=== PATIENT | female | born 1935 | race Caucasian/White ===

== ENCOUNTER → 2016-06-23 | Day surgery (SDC) | payer MEDICARE ==
[~2016-06-23] VITALS: Ht 157.5 cm; Wt 55.3 kg
[~2016-06-23] MED LIST: BIOT1SUB SL; BUPIVACAINE HCL PF 0.5% 30 ML VIAL ONE; CALC600T25 PO; CIPR250T52 PO; CIPROFLOXACIN 400 MG PREMIX 200 ML ONE; ESTR0.5T PO; FAMOTIDINE 20 MG/2 ML VIAL ONE; FISH120014 PO; LACTATED RINGER'S 1000 ML INJ 1,000 ML ONE; LEVA250T PO; LEVO250T7 PO; LIDOCAINE HCL 2% 50 ML VIAL ONE; MAGN-23 PO; META0.52; MIDAZOLAM HCL 2 MG/2 ML VIAL ONE; MSM/CAP PO; MULT-207 PO; NEOMYCIN/POLYMYXIN 1 ML G.U. IRRIGANT IR ONE; NORC5TAB PO; PROPOFOL 200 MG/20 ML AMP IV ONE; RANI150T PO; VITA500C18 PO; VITACAP7 PO; [UNRECOGNIZED DRUG - CODE] PO
[2016-06-23 07:50] VITALS: BP 112/59; PULSE 57; RESP 20; TEMP 97.9; O2SAT 99
--- NOTE | 2016-06-23 11:58 | MP ---
cc: SAI MEJIA III, M.D. DATE OF SURGERY 06/23/2016 PREOPERATIVE DIAGNOSIS 1. Left middle finger trigger finger. 2. Left middle finger middle phalanx painful osteophyte PROCEDURES 1. Left third A1 stanislav release 2. Left middle finger middle phalangeal osteophyte excision 3. Use of image intensifier. SURGEON Sai Mejia III, MD PROCEDURE The patient was brought to the operative room, placed on the operating table after the correct site and there were verified members of each team room multiple times including the patient and myself and after adequate preop markings and preoperative written consent were verified by everyone and after an adequate preoperative time-out was performed and after adequate IV sedation had been achieved, the left upper extremity prepped and draped in traditional sterile surgical fashion. A 50/50 mixture of 2% plain lidocaine and 0.5% plain Marcaine was infiltrated into the skin and subcutaneous tissue overlying the site of the planned incision. The limb was exsanguinated after examination. A highly-placed well-padded axillary tourniquet was inflated to 180 mmHg for a total of approximately 20 minutes. A transversely oriented incision within the distal palmar crease made and carried down through the skin and subcutaneous tissue. Blunt dissection was performed. The flexor tendons were identified and the A1 stanislav was identified as well. It was found to be thick and redundant and it was incised in its midline in its entirety from its proximal most to its distal-most extent. Exploration proximally which did wrap into the palm did not reveal any crossing bands of tissue. Thorough irrigation with saline was performed and the skin edges reapproximated using interrupted 5-0 nylon sutures. Attention was then turned to the radial aspect of the third finger PIP joint. A longitudinally oriented incision in the mid axillary area was made and carried down through the skin and then blunt dissection was performed. The ligamentous tissue overlying the bony osteophyte at the base of the middle phalanx incised longitudinally. A Periosteal elevator was then used to elevate the tissue from the bone and inflamed osteophytic projection was easily identified and was excised in its entirety. This was then followed from initiation to completion using mini C-arm for guidance and final x-rays were obtained. A passive range of motion was performed and there were no instability in the PIP joint at all. A thorough irrigation was performed. The ligamentous tissue was then reapproximated to itself using 4-0 Mersilene sutures in a [id number] fashion. Thorough irrigation was performed. The skin edges reapproximated using running 5-0 nylon sutures. The hand and arm were thoroughly cleansed and dried. Betadine Adaptic dressings were applied on top of the wound followed by a bulky soft dressing. The axillary tourniquet was released and the hand and all the fingers on the left became immediately soft, pink, warm and had brisk capillary refill of less than two-seconds. The patient was awakened from anesthesia and transported to the Post-Anesthesia Care Unit awake and in stable condition at the end of the case. Sponge, needle, and instrument counts were correct at the end of the case as reported by nurses in the room. MD ARLEN Benitez III/OREN /11:19 AM /11:41 AM
[2016-06-23 12:00] VITALS: BP 118/55; PULSE 62; RESP 14; O2SAT 99
--- NOTE | 2016-06-24 18:49 | EKG ---
Date Performed: 06/23/2016 Time Performed: 08:17:18 PTAGE: 81 years EKG: Sinus bradycardia. Normal ECG except for rate NO PREVIOUS TRACING DOCTOR: Sami Resendez Interpretating Date/Time 06/24/2016 18:44:31
== END | disposition home or self-care (01) ==
LOC: PHSDC 06:57
PROVIDERS: ATTEND Orthopaedic Surgery Hand Surgery
DX: M65.332 Trigger finger, left middle finger (principal); M25.742 Osteophyte, left hand; Z01.810 Encounter for preprocedural cardiovascular examination
CPT/HCPCS: 01810; 26055; 26235; 76000; 93005; J0744; J2250; J7120

== ENCOUNTER → 2016-09-07 | Outpatient (CLI) | payer MEDICARE ==
[~2016-09-07] MED LIST changes: +BIOT5TAB PO; -BUPIVACAINE HCL PF 0.5% 30 ML VIAL ONE; +CARB1DRO19 EACH EYE; -CIPR250T52 PO; -CIPROFLOXACIN 400 MG PREMIX 200 ML ONE; +ESTR42.5V VAGINAL; -FAMOTIDINE 20 MG/2 ML VIAL ONE; -LACTATED RINGER'S 1000 ML INJ 1,000 ML ONE; -LEVA250T PO; -LEVO250T7 PO; -LIDOCAINE HCL 2% 50 ML VIAL ONE; -MIDAZOLAM HCL 2 MG/2 ML VIAL ONE; +MULT1TAB PO; -NEOMYCIN/POLYMYXIN 1 ML G.U. IRRIGANT IR ONE; -NORC5TAB PO; +OMEG12007 PO; -PROPOFOL 200 MG/20 ML AMP IV ONE; +TURM500C4 PO
[2016-09-07 13:24] LABS: BLOOD, URINE NEG (NEG); COMMENT (UR) CULT NOT INDICATED; CULTURE IF INDICATED CULT NOT INDICATED; GLUCOSE,URINE NEG (NEG); KETONE, URINE NEG (NEG); MUCUS URINE FEW /lpf (OCC); NITRITE,URINE NEG (NEG); PH, URINE 6.5 (5.0-8.5); SQUAMOUS EPITHELIAL CELL URINE <1 /hpf (0-5); URINE COLOR YELLOW (YELLW/STRAW)
[2016-09-07 13:31] LABS: AUTOMATED NEUTROPHIL # 5.4 TH/MM3 (1.8-7.7); BASOPHIL # 0.1 TH/MM3 (0-0.2); BASOPHIL % 1.1 % (0.0-2.0); EOSINOPHIL # 0.2 TH/MM3 (0-0.4); EOSINOPHIL % 2.6 % (0.0-4.0); HEMATOCRIT 39.1 % (35.0-46.0); HEMO FLAGS DIFF FINAL; LYMPH % 18.7 % (9.0-44.0); LYMPHOCYTE # 1.4 TH/MM3 (1.0-4.8); MEAN CELL VOLUME 91.9 FL (80.0-100.0); MEAN CORPUSCULAR HEMOGLOBIN 30.9 PG (27.0-34.0); MEAN CORPUSCULAR HGB CONC 33.6 % (32.0-36.0); MONO % 7.8 % (0.0-8.0); NEUT % 69.8 % (16.0-70.0); PLATELET COUNT 240 TH/MM3 (150-450); RED BLOOD COUNT 4.25 MIL/MM3 (4.00-5.30); RED CELL DISTRIBUTION WIDTH 13.5 % (11.6-17.2); WHITE BLOOD COUNT 7.7 TH/MM3 (4.0-11.0)
== END ==
LOC: CPRE 12:41
PROVIDERS: ATTEND Obstetrics & Gynecology
DX: Z01.812 Encounter for preprocedural laboratory examination (principal); N85.00 Endometrial hyperplasia, unspecified; N88.2 Stricture and stenosis of cervix uteri
CPT/HCPCS: 36415; 81001; 85025

== ENCOUNTER → 2016-09-09 | Day surgery (SDC) | payer MEDICARE ==
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
[~2016-09-09] VITALS: Ht 157.5 cm; Wt 53.6 kg
[~2016-09-09] MED LIST changes: +ACETAMINOPHEN 1000 MG/100 ML VIAL IV ONE; +ACETAMINOPHEN 1000 MG/100 ML VIAL IV PRN; -BIOT1SUB SL; +CHLORHEXIDINE GLUCONATE 2 % 1 PACK (2 CLOTHS) TOPICAL PRN; +DEXAMETHASONE SOD PHOS 4 MG/ML VIAL ONE; +DO NOT ADM ANY ANTICOAGULANT DRUGS PRN; -ESTR0.5T PO; -FISH120014 PO; +INSULIN HUMAN REGULAR 1,000 UNITS/10 ML VIAL SQ PRN; +LACTATED RINGER'S 1000 ML IV PRN; +METOPROLOL TARTRATE 25 MG TAB PO PRN; -MULT-207 PO; +ONDANSETRON HCL 4 MG/2 ML VIAL IV PUSH ONE; +POVIDONE IODINE 5% (ANTISEPSIS KIT) 4 APPLICATIONS EACH NARE PRN; +PROPOFOL 200 MG/20 ML AMP IV ONE; +SODIUM CHLORID 0.9% 500 ML IV PRN; -[UNRECOGNIZED DRUG - CODE] PO; +ceFAZolin 1,000 MG/NS 100 ML IV SCH
[2016-09-09 05:45] VITALS: BP 131/55; PULSE 58; RESP 20; TEMP 98.1; O2SAT 98
[2016-09-09 08:35] VITALS: BP 138/55; PULSE 58; RESP 20; TEMP 97.5; O2SAT 99
--- NOTE | 2016-09-10 08:42 | MP ---
cc: ANGELITA BAINS DATE OF SURGERY 09/09/2016 PREOPERATIVE DIAGNOSIS Atypical glandular cells on Pap smear. POSTOPERATIVE DIAGNOSIS Atypical glandular cells on Pap smear with apparent endometrial polyp. PROCEDURE Hysteroscopy D&C. ANESTHESIA General LMA ESTIMATED BLOOD LOSS Less than 5 cc FLUIDS Half liter crystalloid. OBJECTIVE FINDINGS Following induction of adequate LMA anesthesia, the patient was prepped and draped supine on the operating table in the dorsolithotomy position in the usual sterile fashion with the bladder being drained via in and out catheterization. Exam revealed a small anterior uterus. Cervix was nearly flush with the vagina. The cervix was exposed with handheld retractors. The anterior lip grasped with a single toothed tenaculum. The cervix and uterus sounded to 6.5 cm with a soft, atraumatic dilator and gently dilated to #16 Hanks dilator. The hysteroscope was passed through a normal cervix, small polypoid area anterior endometrium. The scope was withdrawn. Endocervical curettings obtain with a small torquing curette, endometrium small torquing curette and polyp was passed to leaf size picker the polyp. The cervix tenaculum site sutured with 2-0 chromic. All instruments, all counts correct. The patient's legs taken out of the stirrups and she was awakened and taken to the recovery room in good condition. MD BRANDIE Rubi/OREN /7:35 AM /8:41 AM
== END | disposition home or self-care (01) ==
LOC: HSDC 05:09
PROVIDERS: ATTEND Obstetrics & Gynecology
DX: R87.619 Unspecified abnormal cytological findings in specimens from cervix uteri (principal); N84.1 Polyp of cervix uteri; K21.9 Gastro-esophageal reflux disease without esophagitis; Z87.891 Personal history of nicotine dependence
CPT/HCPCS: 00952; 58558; 88305; J1100; J2405; J3010; J0131

== ENCOUNTER → 2017-04-25 | Outpatient (CLI) | payer MEDICARE, BC ==
[~2017-04-25] MED LIST changes: -ACETAMINOPHEN 1000 MG/100 ML VIAL IV ONE; -ACETAMINOPHEN 1000 MG/100 ML VIAL IV PRN; +BIOT10TA PO; -BIOT5TAB PO; -CALC600T25 PO; +CALC600T5 PO; -CHLORHEXIDINE GLUCONATE 2 % 1 PACK (2 CLOTHS) TOPICAL PRN; -DEXAMETHASONE SOD PHOS 4 MG/ML VIAL ONE; -DO NOT ADM ANY ANTICOAGULANT DRUGS PRN; +FISH1200 PO; -INSULIN HUMAN REGULAR 1,000 UNITS/10 ML VIAL SQ PRN; -LACTATED RINGER'S 1000 ML IV PRN; -METOPROLOL TARTRATE 25 MG TAB PO PRN; -ONDANSETRON HCL 4 MG/2 ML VIAL IV PUSH ONE; -POVIDONE IODINE 5% (ANTISEPSIS KIT) 4 APPLICATIONS EACH NARE PRN; -PROPOFOL 200 MG/20 ML AMP IV ONE; -SODIUM CHLORID 0.9% 500 ML IV PRN; -TURM500C4 PO; +TURM500C7 PO; -ceFAZolin 1,000 MG/NS 100 ML IV SCH
[2017-04-25 10:02] LABS: HEMATOCRIT 38.5 % (35.0-46.0); HEMOGLOBIN 13.3 GM/DL (11.6-15.3); MEAN CELL VOLUME 91.7 FL (80.0-100.0); MEAN CORPUSCULAR HEMOGLOBIN 31.6 PG (27.0-34.0); MEAN CORPUSCULAR HGB CONC 34.4 % (32.0-36.0); MEAN PLATELET VOLUME 8.6 FL (7.0-11.0); PLATELET COUNT 280 TH/MM3 (150-450); RED CELL DISTRIBUTION WIDTH 13.7 % (11.6-17.2); WHITE BLOOD COUNT 6.6 TH/MM3 (4.0-11.0)
[2017-04-25 10:19] LABS: PROTHROMBIN TIME - PATIENT 10.4 SEC (9.8-11.6)
[2017-04-25 10:30] LABS: BICARBONATE 29.2 MEQ/L (21.0-32.0); CALCIUM 9.7 MG/DL (8.5-10.1); CREATININE 0.87 MG/DL (0.50-1.00)
[2017-04-25 11:18] LABS: BILIRUBIN, URINE NEG (NEG); BLOOD, URINE NEG (NEG); GLUCOSE,URINE NEG (NEG); KETONE, URINE NEG (NEG); MUCUS URINE FEW /lpf (OCC); NITRITE,URINE NEG (NEG); SQUAMOUS EPITHELIAL CELL URINE <1 /hpf (0-5); URINE COLOR YELLOW (YELLW/STRAW); URINE LEUKOCYTE ESTERASE NEG (NEG)
--- NOTE | 2017-04-27 06:43 | EKG ---
Date Performed: 04/25/2017 Time Performed: 09:48:47 PTAGE: 82 years EKG: Sinus rhythm NORMAL ECG Since PREVIOUS TRACING , no significant change noted PREVIOUS TRACIN06/23/2016 08.17 DOCTOR: Eliseo Kimball Interpretating Date/Time 04/27/2017 06:41:38
== END ==
LOC: CPRE 08:58
PROVIDERS: ATTEND Orthopaedic Surgery
DX: Z01.810 Encounter for preprocedural cardiovascular examination (principal); M79.609 Pain in unspecified limb; M16.12 Unilateral primary osteoarthritis, left hip
CPT/HCPCS: 36415; 80048; 81001; 85027; 85610; 85730; 93005

== ENCOUNTER 2017-05-10 05:10 | Inpatient (IN) | payer MEDICARE, BC ==
[~2017-05-10] VITALS: Ht 157.5 cm; Wt 52.6 kg
[~2017-05-10 05:10] MED LIST changes: -OMEG12007 PO
[2017-05-10] MEDS ORDERED: POVIDONE IODINE 5% (ANTISEPSIS KIT) 4 APPLICATIONS EACH NARE PRN (05:45)
[2017-05-10] MEDS ORDERED: CHLORHEXIDINE GLUCONATE 2 % 1 PACK (2 CLOTHS) TOPICAL PRN (05:45)
[2017-05-10] MEDS ORDERED: TRANEXAMIC ACID IV SCH ×4 (05:45)
[2017-05-10] MEDS ORDERED: ceFAZolin 2 GM PREMIX 50 ML IV SCH (05:45)
[2017-05-10] MEDS ORDERED: LACTATED RINGER'S 1000 ML IV PRN (05:45)
[2017-05-10] MEDS ORDERED: SODIUM CHLORID 0.9% 500 ML IV PRN (05:45)
[2017-05-10] MEDS ORDERED: CHLORHEXIDINE GLUCONATE 4% SOLN 120 ML BTL TOPICAL SCH (05:45)
[2017-05-10] MEDS ORDERED: SODIUM CHLORIDE 0.9% IV SCH ×4 (05:45)
[2017-05-10] MEDS ORDERED: METOPROLOL TARTRATE 25 MG TAB PO PRN (05:45)
[2017-05-10] MEDS ORDERED: EXPAREL PERI-ARTICULAR INJECTION (TOTAL VOL. 60 ML) P-ARTICULR SCH ×2 (05:45)
[2017-05-10] MEDS ORDERED: GENTAMICIN SULFATE 80 MG/2 ML VIAL ONE (06:12)
[2017-05-10] MEDS ORDERED: ACETAMINOPHEN 1000 MG/100 ML 100 ML IV ONE (06:25)
[2017-05-10] MEDS ORDERED: FAMOTIDINE 20 MG/2 ML VIAL ONE (06:25)
[2017-05-10] MEDS ORDERED: PROPOFOL 500 MG/50 ML INJ 50 ML ONE (06:26)
[2017-05-10] MEDS ORDERED: MIDAZOLAM HCL 2 MG/2 ML VIAL ONE (06:38)
[2017-05-10] MEDS ORDERED: METOCLOPRAMIDE HCL 10 MG/2 ML VIAL ONE (06:38)
[2017-05-10] MEDS ORDERED: TETRACAINE PF 1% INJ 2 ML AMP ONE (06:49)
[2017-05-10] MEDS ORDERED: ECASA81 PO (06:56)
--- NOTE | 2017-05-10 06:58 | HHI.FF ---
Face to Face Verification Diagnosis: (1) Status post total replacement of left hip Physical Therapy Gait training Hip: Total hip, Protocol: Left, Posterior hip precautions, Progress to weight bearing Canvas Knee Splint: When in bed & 2 pillows btw thighs Nursing Nursing: Dressing changes Dressing Changes: Daily dressing change, Coverderm/Primapore Additional Instructions Leave Dermabond Prineo in place. I have seen patient Pamela Patel on 05/10/17. My clinical findings support the need for the requested home health care services because: Ltd mobility - disease progression Limited ability to care for self High risk of falls I certify that my clinical findings support that this patient is homebound because: Post-op weakness Unsteady gait/balance Unsafe to leave home unassisted Talia Mcneil MD (Charles) May 10, 2017 06:58
[2017-05-10] MEDS ORDERED: TRANEXAMIC ACID INJ 0 MG in SODIUM CHLORIDE 0.9% INJ 100 ML IV SCH (07:00)
[2017-05-10] MEDS ORDERED: ONDANSETRON HCL 4 MG/2 ML VIAL IVP PRN (07:00)
[2017-05-10] MEDS ORDERED: MAGNESIUM HYDROXIDE SUSP 30 ML CUP PO PRN (07:00)
[2017-05-10] MEDS ORDERED: BISACODYL 10 MG SUPP RECTAL PRN (07:00)
[2017-05-10] MEDS ORDERED: ACETAMINOPHEN/HYDROcodone 325 MG/7.5 MG TAB PO PRN ×2 (07:00)
[2017-05-10] MEDS ORDERED: Post-op Orders (for Pharmacy) XX ONE (07:00)
[2017-05-10] MEDS: LACTATED RINGER'S 1000 ML INJ 1,000 ML IV SCH ×2 (08:30→14:30)
[2017-05-10] MEDS ORDERED: MORPHINE SULFATE 4 MG/ML INJ IV PUSH PRN (08:30)
[2017-05-10] MEDS ORDERED: NON-FORMULARY DRUG (Omega-3 Fatty Acids (Fish Oil 1200 mg) 1 CAP) PO SCH (09:00)
[2017-05-10] MEDS ORDERED: TURMERIC ROOT EXTRACT PO SCH (09:00)
[2017-05-10] MEDS ORDERED: NON-FORMULARY DRUG (Biotin 10 MG) PO SCH (09:00)
[2017-05-10] MEDS ORDERED: [UNRECOGNIZED DRUG - OTHER] PO SCH (09:00)
--- NOTE | 2017-05-10 09:06 | PD.OP ---
Operative Report Date of Surgery: May 10, 2017 Preoperative Diagnosis: (1) Primary osteoarthritis of left hip Postoperative Diagnosis: (1) Primary osteoarthritis of left hip Procedure: Left total hip arthroplasty using [place] prosthesis. Anesthesia: Spinal with supplemental local with Exparel Surgeon: Orlando Mcneil M.D. Woodwork Salvage Inspector(s): Gage GODOY Operation and Findings: Indications and Findings: This 82-year-old woman has had long-standing arthritis in her left hip which has been nonresponsive to conservative measures including anti-inflammatory agents analgesics ambulatory aids and the like. She has marked limited rotation of motion and marked limitation of mobility. She uses either crutch or cane to assist with walking. Over reaming range of motion is markedly limited. She has a significantly antalgic gait. X-rays show severe osteoarthritis in the hip with loss of articular cartilage to bone on bone, degenerative cysts particularly in the femoral head and osteophytes. Intraoperative findings: There was severe osteoarthritis in the left hip with loss of articular cartilage to expose subchondral bone, cysts within the femoral head, osteophytes and subchondral sclerosis. Implants: The femoral component was a Ronald Accolade 2 stem, size 4 with a 132 neck angle. The head was a Biolox delta, with a 32 millimeter outer diameter , -4 millimeter neck length. The acetabular component is a Tritanium cluster shell, size 50 outer diameter with a 0, X3 polyethylene liner, size 32 millimeters inner diameter. The patient was brought to the clean air operating suite and a spinal anesthetic was administered. The patient was then positioned into a lateral position with the left hip up on a Donay lateral positioner. The hip and lower extremity were then prepped with alcohol, Hibiclens and ChloraPrep and draped in the usual manner with the hip draped free. Patient received prophylactic antibiotics preoperatively. The patient also received tranexamic acid preoperatively. An appropriate timeout procedure was carried out. An incision was then made from the midportion of the greater trochanter proximally and posteriorly paralleling the fibers of the gluteus kavya. The incision was deepened through subcutaneous tissues down to the fascia issac and gluteus fascia. The gluteus fascia was then split longitudinally in line with its fibers up to the upper portion of the fascia issac. With wound towels in place, the Charnley retractor was inserted. The sciatic nerve was identified and protected throughout the procedure. Dissection was then carried down to the interval between the gluteus minimus and the piriformis. A retractor was inserted. The piriformis and obturator conjoined tendon was released from the greater trochanter and reflected off the capsule. A capsulotomy was made longitudinally along the femoral neck to the base of the femoral neck and then curved distally along the posterior aspect of the greater trochanter. The hip was then internally rotated. Further release of the external rotators was carried out exposing the hip. The hip was then dislocated. The femoral neck was transected at the appropriate level using the oscillating saw placement of appropriate retractors. The femoral head was then removed. Preparation of the femur was initiated with a box osteotome followed by a curet to identify the medullary canal. Broaching was then initiated with the size 0 broach and went and 1 size increments up to size 4. The broach handle was removed. The femoral neck was then trimmed with a calcar planar. Attention was then directed to the acetabulum. Soft tissues were debrided from the acetabulum. Retractors were placed about the acetabulum. Reaming was then initiated with the 41 millimeter reamer and went in 2 mm increments up to the 49 millimeter diameter reamer. A trial reduction with the 50 millimeter trial prosthesis was carried out. When this was deemed to be appropriate, the trial prosthesis was removed. The acetabulum was then irrigated and cleaned. The actual prosthesis as noted above was then impacted into place and seated appropriately. Drill holes were then made and sounded. Appropriate sized screws were then inserted to stabilize the acetabulum further. The liner as noted above was then inserted into the acetabular shell and impacted into place. Osteophytes were trimmed from the acetabulum. Local anesthetic was then administered throughout the area of the acetabulum and anterior aspect of the femur. The trial neck was then placed on the broach for the above-noted prosthesis. The femoral head trial was placed onto the femoral neck with the external diameter of the head being 32 millimeters and the neck length being on his for millimeters. A trial reduction was then carried out. The stability, leg length and motion were excellent. There was no pistoning. The trial prosthesis was removed. The broach was removed. The femoral component was then impacted into the medullary canal of the femur after irrigation and suctioning. When this was appropriately seated a trial reduction was again carried out with the trial prosthesis. Again, there was no pistoning. The leg length was appropriate. The stability and motion were excellent. The trial prosthesis was then removed. After cleaning and drying the trunion of the femoral component, the above-noted femoral head was impacted onto the trunnion. The hip was then reduced. The stability and mobility were again checked along with leg lengths as noted above. The hip was then positioned appropriately and closure commenced after the remainder of the local anesthetic was injected throughout the hip. The external rotators and capsule were then repaired with #1 Vicryl interrupted transosseous sutures with a Krakw technique to reattach the external rotators and capsule to the posterior aspect of the greater trochanter. The capsule itself on the superior aspect was closed with #1 Vicryl interrupted [id number] sutures. The sciatic nerve was again inspected. The fascia issac and gluteus fascia were then repaired with #1 Vicryl interrupted [id number] sutures. The subcutaneous tissues were closed with 2-0 Vicryl interrupted simple sutures with buried knots. The skin was closed with a continuous subcuticular closure of 4-0 Monocryl. The wound was then approximated with Dermabond Prineo. A dry dressing was applied to the hip. A knee immobilizer was applied to the leg. The patient was then transferred from the operating room to the recovery room in satisfactory condition having tolerated the procedure well. Counts are correct. Specimens: None. Estimated blood loss: 100 mL Talia Mcneil MD (Charles) May 10, 2017 09:06
[2017-05-10] MEDS ORDERED: NALOXONE HCL 0.4 MG/ML AMP IV PUSH PRN (09:15)
[2017-05-10] MEDS: MULTIVITAMINS/MINERALS THERAPEUTIC TAB PO SCH (09:30)
[2017-05-10] MEDS: KETOROLAC TROMETHAMINE 30 MG/ML (IVP) VIAL IVP SCH ×3 (10:00→22:15)
--- NOTE | 2017-05-10 10:18 | RADRPT ---
EXAM DATE/TIME: 05/10/2017 09:42 [facility] COMPARISON: No previous studies available for comparison. INDICATIONS : Post-op left total hip replacement. MEDICAL HISTORY : Arthritis. Gastroesophageal reflux disease. SURGICAL HISTORY : Left total hip replacement. ENCOUNTER: Initial ACUITY: 1 day PAIN SCORE: 0/10 LOCATION: Left anterior hip. FINDINGS: The patient is post left hip arthroplasty. The orthopedic hardware is in excellent position. The alig nment is good. There are advanced arthritic changes within the right hip. There degenerative changes in the lumbar spine. CONCLUSION: 1. Post left hip arthroplasty. The orthopedic hardware is in good position. Huang Lara MD on May 10, 2017 at 10:15 Board Certified Radiologist. This report was verified electronically.
[2017-05-10 12:00] VITALS: BP 140/70; PULSE 65; RESP 17; TEMP 95.5; O2SAT 100
[2017-05-10] MEDS ORDERED: ONDANSETRON HCL 4 MG/2 ML VIAL IV ONE (12:00)
[2017-05-10] MEDS ORDERED: ePHEDrine/NS 25 MG/5 ML SYRINGE IV ONE (12:00)
[2017-05-10] MEDS ORDERED: DEXAMETHASONE SOD PHOS 4 MG/ML VIAL IV ONE (12:00)
[2017-05-10] MEDS ORDERED: PROPOFOL 200 MG/20 ML AMP IV ONE (12:00)
[2017-05-10] MEDS ORDERED: PHENYLEPH/NS 1000 MCG/10 ML SYR IV ONE (12:00)
[2017-05-10] MEDS ORDERED: LACTATED RINGER'S 1000 ML INJ 1,000 ML IV ONE (12:00)
--- NOTE | 2017-05-10 13:35 | PD.CONS ---
[facility] Requested By Dr. MELODIE Mcneil Reason for Consult Medical management Primary Care Physician Mica Barrios MD Diagnoses: History of Present Illness This is a 82-year-old female with a history of chronic left hip pain secondary to osteoarthritis. Underwent arthroplasty by MELODIE Mcneil who requested consultation to evaluate and manage multiple medical conditions. She has GERD controlled on ranitidine and arthritis managed by glucosamine. She denies any other medical conditions. Anesthesia records reviewed shows she was hemodynamically stable received 1300 mL crystalloid and EBL of 100 mL. All other systems reviewed negative Review of Systems Except as stated in HPI: all other systems reviewed are Neg Past Family Social History Allergies: Coded Allergies: amoxicillin (Verified Allergy, Severe, hives, 05/10/17) Past Medical History As previously mentioned Past Surgical History Orthopedic surgeries, hysteroscopy Reported Medications Estrace Vaginal (Estradiol) 0.01% Cream 1 Appl VAGINAL HS Fish Oil 1200 mg ([place]-3 Fatty Acids) 360 Mg-1,200 Mg Cap 1 Cap PO DAILY Biotin 10 Mg Tab 10 Mg PO DAILY Lubricant Eye Drops (Carboxymethylcellulose Sodium) 1 Each Droperette 1 Drop EACH EYE DAILY Turmeric (Turmeric Root Extract) 500 Mg Capsule 600 Mg PO BID Centrum Silver Adult 50+ (Multiple Vitamins W/ Minerals) 1 Tab Tab 1 Tab PO DAILY Magnesium Malate Powder Bulk Pow 1 Cap PO HS Metamucil (Psyllium) 520 Mg Cap Unknown Dose WEEKLY Vitamin C Sr (Ascorbic Acid) 500 Mg Caper 500 Mg PO MSM-Glucosamine (Glucosamine Sulfate-Methylsulf) 250-250 Mg Cap 1 Cap PO BID B Complex (B-Complex Vitamins) 1 Cap 1 Cap PO HS Calcium (Calcium Carbonate) 600 Mg Tab 630 Mg PO HS Ranitidine (Ranitidine HCl) 150 Mg Tab 150 Mg PO BID Family History Hypertension and heart disease Social History Occasional alcohol use does not smoke Physical Exam Vital Signs Vital Signs Date Time Temp Pulse Resp B/P (MAP) Pulse Ox O2 Delivery O2 Flow Rate FiO2 05/10/17 12:15 97.9 56 20 121/59 (79) 100 Room Air 05/10/17 11:15 57 20 128/61 (83) 99 Room Air 05/10/17 10:15 50 20 129/60 (83) 99 Room Air 4 05/10/17 10:00 66 20 122/60 (80) 100 Room Air 05/10/17 09:45 60 20 115/58 (77) 98 Room Air 05/10/17 09:30 66 20 108/53 (71) 95 05/10/17 09:11 97.6 71 20 115/56 (75) 100 Nasal Cannula 2 05/10/17 05:53 98.7 69 20 147/64 (91) 100 Physical Exam GENERAL: This is a well-nourished, well-developed patient, in no apparent distress. SKIN: No rashes, ecchymoses or lesions. Cool and dry. HEAD: Atraumatic. Normocephalic. No temporal or scalp tenderness. EYES: Pupils equal round and reactive. Extraocular motions intact. No scleral icterus. No injection or drainage. ENT: Nose without bleeding, purulent drainage or septal hematoma. Throat without erythema, tonsillar hypertrophy or exudate. Uvula midline. Airway patent. NECK: Trachea midline. No JVD or lymphadenopathy. Supple, nontender, no meningeal signs. CARDIOVASCULAR: Regular rate and rhythm without murmurs, gallops, or rubs. RESPIRATORY: Clear to auscultation. Breath sounds equal bilaterally. No wheezes , rales, or rhonchi. GASTROINTESTINAL: Abdomen soft, non-tender, nondistended. no guarding. MUSCULOSKELETAL: Extremities without clubbing, cyanosis, or edema. Left hip with dry dressing. CKS left lower extremity NEUROLOGICAL: Awake and alert. Cranial nerves II through XII intact. Motor and sensory grossly within normal limits. Five out of 5 muscle strength in all muscle groups. Normal speech. Laboratory Preop records reviewed CBC remarkable for hemoglobin 13 platelet count 280 white count of 6.6, coags unremarkable INR 1, BMP unremarkable with potassium 4.5 creatinine 0.87, EKG tracing reviewed showing sinus rhythm Assessment and Plan Assessment and Plan This is a 82-year-old female with a history of chronic left hip pain secondary to osteoarthritis. Underwent arthroplasty by MELODIE Mcneil who requested consultation to evaluate and manage multiple medical conditions. Left hip osteoarthritis status post arthroplasty. Stable continue postoperative care with physical therapy, wound care, pain management with Lortab, IV Toradol and morphine sulfate, DVT prophylaxis with aspirin. Monitor hemoglobin and hematocrit for postoperative anemia She has GERD controlled on ranitidine Arthritis managed by glucosamine. Discussed Condition With Patient Elie Samaniego MD May 10, 2017 13:35
[2017-05-10 16:00] VITALS: BP 134/75; PULSE 60; RESP 18; TEMP 97.2; O2SAT 100
[2017-05-10 16:12] VITALS: O2SAT 99
[2017-05-10] MEDS: FAMOTIDINE 20 MG TAB PO SCH (19:51)
[2017-05-10 20:53] VITALS: BP 119/58; PULSE 86; RESP 17; TEMP 98.4; O2SAT 97
[2017-05-10] MEDS ORDERED: MAGNESIUM MALATE PO SCH (21:00)
[2017-05-10] MEDS ORDERED: ESTRADIOL 0.1 MG/GM VAG CREAM 42.5 GM VAGINAL SCH (21:00)
[2017-05-10] MEDS ORDERED: NON-FORMULARY DRUG (B-Complex Vitamins (B Complex) 1 CAP) PO SCH (21:00)
[2017-05-10] MEDS ORDERED: CALCIUM CARBONATE 1.25 GM (CA 500 MG) TAB PO SCH (21:00)
[2017-05-10] MEDS ORDERED: ZOLPIDEM TARTRATE 5 MG TAB PO PRN (21:00)
[2017-05-10 23:00] VITALS: BP 123/60; PULSE 82; RESP 17; TEMP 98.7; O2SAT 97
[2017-05-11] MEDS: KETOROLAC TROMETHAMINE 30 MG/ML (IVP) VIAL IVP SCH ×2 (02:29→09:40)
[2017-05-11 05:15] VITALS: BP 139/62; PULSE 75; RESP 17; TEMP 98.6; O2SAT 96
--- NOTE | 2017-05-11 06:51 | PD.ORT.PN ---
Subjective Post Op Day #: 1 Subjective Remarks She is doing well. She has minimal complaints. She had trouble sleeping because of restless legs. Her daughter is going to be with her for at least the next week. She feels like she will be ready to go home after therapy. Distance Walked 2 steps forward and back, twice with physical therapy. Objective Vitals Vital Signs Date Time Temp Pulse Resp B/P (MAP) Pulse Ox O2 Delivery O2 Flow Rate FiO2 05/10/17 23:00 98.7 82 17 123/60 (81) 97 05/10/17 20:53 98.4 86 17 119/58 (78) 97 05/10/17 16:12 99 21 05/10/17 16:00 97.2 60 18 134/75 (94) 100 05/10/17 14:20 Nasal Cannula 4.00 05/10/17 12:15 97.9 56 20 121/59 (79) 100 Room Air 05/10/17 12:00 95.5 65 17 140/70 (93) 100 05/10/17 11:15 57 20 128/61 (83) 99 Room Air 05/10/17 10:15 50 20 129/60 (83) 99 Room Air 4 05/10/17 10:00 66 20 122/60 (80) 100 Room Air 05/10/17 09:45 60 20 115/58 (77) 98 Room Air 05/10/17 09:30 66 20 108/53 (71) 95 05/10/17 09:11 97.6 71 20 115/56 (75) 100 Nasal Cannula 2 I/O 05/10/17 05/10/17 05/10/17 05/11/17 05/11/17 05/11/17 07:00 15:00 23:00 07:00 15:00 23:00 Intake Total 1750 ml 480 ml Output Total 100 ml Balance 1650 ml 480 ml Intake Oral 450 ml 480 ml IV Total 1300 ml Output Estimated Blood Loss 100 ml # Voids 3 # Bowel Movements 0 Imaging Last 24 hours Impressions Hip X-Ray 05/10/17 0652 Signed Impressions: Service Date/Time: Wednesday, May 10, 2017 09:42 - CONCLUSION: 1. Post left hip arthroplasty. The orthopedic hardware is in good position. Huang Lara MD Objective Remarks She is resting comfortably, supine in bed. The neurovascular status is intact. The dressing is dry and intact. Assessment & Plan Ortho Post Op Day #: 1 Problem List: (1) Status post total replacement of left hip ICD Codes: Z96.642 - Presence of left artificial hip joint Plan: Continue postop care and PT. (2) Primary osteoarthritis of left hip ICD Codes: M16.12 - Unilateral primary osteoarthritis, left hip Status: Resolved Assessment and Plan Condition: Good. Orthopedically stable. DVT prophylaxis: Sequentials, IDALMIS stockings, aspirin 81 mg twice daily. Discharge plans: Home with home health care. An appointment was scheduled through the office. Prescriptions: [place] 7.5/325 Talia Mcneil MD (Charles) May 11, 2017 06:51
--- NOTE | 2017-05-11 07:31 | HHI.DS ---
Discharge Summary Admission Date May 10, 2017 at 05:10 Discharge Date: May 11, 2017 Admitting Diagnosis Primary osteoarthritis, left hip. Diagnosis: (1) Status post total replacement of left hip Diagnosis: Principal ICD Codes: Z96.642 - Presence of left artificial hip joint (2) Primary osteoarthritis of left hip Diagnosis: Principal ICD Codes: M16.12 - Unilateral primary osteoarthritis, left hip Status: Resolved Procedures Left total hip arthroplasty with [place] prosthesis (posterior approach) on 05/10. Brief History This is a 82 year old female patient has had progressive worsening of pain in her right hip limiting her ambulation particularly over the past several months. She has not responded to conservative measures including anti- inflammatory agents, analgesics, exercise, the use of ambulation support such as crutches and cane. Physical findings showed limited range of motion in the hip with significant pain on motion. There was limited ambulation tolerance with an antalgic gait even using external support such as a crutch or cane. X- rays showed severe osteoarthritis in the left hip with loss of articular cartilage to bone on bone, subchondral cysts within the femoral head and eburnation in the acetabulum and femoral head. There is loss of sphericity of the femoral head. Imaging Last 72 hours Impressions Hip X-Ray 05/10/17 0652 Signed Impressions: Service Date/Time: Wednesday, May 10, 2017 09:42 - CONCLUSION: 1. Post left hip arthroplasty. The orthopedic hardware is in good position. Huang Lara MD PE at Discharge She is resting comfortably, supine in bed. The neurovascular status is intact. The dressing is dry and intact. Hospital Course The patient was admitted as noted above. The above noted operative procedure was carried out that day. Preoperatively prophylactic antibiotics were administered Ancef according to protocol. These were continued postoperatively. The patient also received tranexamic acid to help with hemostasis according to protocol. In the postanesthesia care unit, mechanical methods of DVT prophylaxis in the form of IDALMIS stockings and sequentials were initiated. Physical therapy was initiated on the day of surgery. On postoperative day #1 physical therapy continued. DVT prophylaxis with aspirin 81 mg twice daily was initiated at this time. The patient continued physical therapy throughout the hospitalization. The distance walked improved throughout the hospitalization. The patient was discharged on postoperative day 1 with the disposition being to home with home health care. An appointment for follow-up was made prior to admission. Pt Condition on Discharge: Good Discharge Disposition: Disch w/ Home Health Serv Discharge Instructions Diet Instructions: As Tolerated, No Restrictions Activities You Can Perform: Full Weight Bearing, Shower Only-No Bath Activities to Avoid: Lifting/Bending, Strenuous Activity, Bathing, Driving Follow up Referrals: Orthopedics with Talia Mcneil MD ([facility]) New Medications: Aspirin DR (Aspirin DR) 81 Mg Tabdr 81 MG PO BID for Prevent Blood Clot for 30 Days, #60 TAB Hydrocodone/Acetaminophen (Hydrocodone-Acetamin 7.5-325) 7.5 Mg-325 Mg Tablet 1 TAB PO Q4H PRN for PAIN SCALE 1 TO 10, #30 TAB Continued Medications: Ascorbic Acid ER (Vitamin C Sr) 500 Mg Caper 500 MG PO for Nutritional Supplement, CAP 0 Refills B-Complex Vitamins (B Complex) 1 Cap 1 CAP PO HS for Nutritional Supplement, #30 CAP 0 Refills Biotin (Biotin) 10 Mg Tab 10 MG PO DAILY for Nutritional Supplement, #1 BOTTLE 0 Refills Calcium Carbonate (Calcium) 600 Mg Tab 630 MG PO HS Carboxymethylcellulose Sodium (Lubricant Eye Drops) 1 Each Droperette 1 DROP EACH EYE DAILY Estradiol Vaginal (Estrace Vaginal) 0.01% Cream 1 APPL VAGINAL HS for TWICE WEEKLY, #1 TUBE 0 Refills Glucosamine Sulfate-Methylsulf (MSM-Glucosamine) 250-250 Mg Cap 1 CAP PO BID, CAP Magnesium Malate Powder (Magnesium Malate Powder) Bulk Pow 1 CAP PO HS Multiple Vitamins W/ Minerals (Centrum Silver Adult 50+) 1 Tab Tab 1 TAB PO DAILY [place]-3 Fatty Acids (Fish Oil 1200 mg) 360 Mg-1,200 Mg Cap 1 CAP PO DAILY Psyllium (Metamucil) 520 Mg Cap Unknown Dose WEEKLY Ranitidine (Ranitidine) 150 Mg Tab 150 MG PO BID for Heartburn Management, #30 TAB 0 Refills Turmeric Root Extract (Turmeric) 500 Mg Capsule 600 MG PO BID Talia Mcneil MD ([facility]) May 11, 2017 07:31
[2017-05-11] MEDS ORDERED: HYDR-3580 PO (07:32)
[2017-05-11] MEDS ORDERED: ASPIRIN EC 81 MG TABEC PO SCH (08:00)
[2017-05-11 08:09] VITALS: BP 140/66; PULSE 76; RESP 17; TEMP 98.6; O2SAT 95
[2017-05-11] MEDS: FAMOTIDINE 20 MG TAB PO SCH (08:37)
[2017-05-11] MEDS: MULTIVITAMINS/MINERALS THERAPEUTIC TAB PO SCH (08:38)
[2017-05-11] MEDS ORDERED: CARBOXYMETHYLCELL SOD 0.5% OPTH SOLN 15 ML BTL EACH EYE SCH (09:00)
[2017-05-11] MEDS: LACTATED RINGER'S 1000 ML INJ 1,000 ML IV SCH (09:30)
--- NOTE | 2017-05-11 10:11 | HHI.PR ---
Subjective Remarks Follow-up orthopedic surgery. States she did not sleep well secondary to compression stockings. Denies any other complaints. Discussed with nursing Objective Vitals Vital Signs Date Time Temp Pulse Resp B/P (MAP) Pulse Ox O2 Delivery O2 Flow Rate FiO2 05/11/17 08:09 98.6 76 17 140/66 (90) 95 05/11/17 05:15 98.6 75 17 139/62 (87) 96 05/10/17 23:00 98.7 82 17 123/60 (81) 97 05/10/17 20:53 98.4 86 17 119/58 (78) 97 05/10/17 16:12 99 21 05/10/17 16:00 97.2 60 18 134/75 (94) 100 05/10/17 14:20 Nasal Cannula 4.00 05/10/17 12:15 97.9 56 20 121/59 (79) 100 Room Air 05/10/17 12:00 95.5 65 17 140/70 (93) 100 05/10/17 11:15 57 20 128/61 (83) 99 Room Air 05/10/17 10:15 50 20 129/60 (83) 99 Room Air 4 I/O 05/10/17 05/10/17 05/10/17 05/11/17 05/11/17 05/11/17 07:00 15:00 23:00 07:00 15:00 23:00 Intake Total 1750 ml 480 ml 360 ml Output Total 100 ml Balance 1650 ml 480 ml 360 ml Intake Oral 450 ml 480 ml 360 ml IV Total 1300 ml Output Estimated Blood Loss 100 ml # Voids 3 3 # Bowel Movements 0 0 Imaging Last Impressions Hip X-Ray 05/10/17 0652 Signed Impressions: Service Date/Time: Wednesday, May 10, 2017 09:42 - CONCLUSION: 1. Post left hip arthroplasty. The orthopedic hardware is in good position. Huang Lara MD Objective Remarks GENERAL: This is a well-nourished, well-developed patient, in no apparent distress. SKIN: No rashes, ecchymoses or lesions. Cool and dry. CARDIOVASCULAR: Regular rate and rhythm without murmurs, gallops, or rubs. RESPIRATORY: Clear to auscultation. Breath sounds equal bilaterally. No wheezes , rales, or rhonchi. GASTROINTESTINAL: Abdomen soft, non-tender, nondistended. no guarding. MUSCULOSKELETAL: Extremities without clubbing, cyanosis, or edema. Left hip with dry dressing. CKS left lower extremity NEUROLOGICAL: Awake and alert. Cranial nerves II through XII intact. Motor and sensory grossly within normal limits. Five out of 5 muscle strength in all muscle groups. Normal speech. A/P Assessment and Plan This is a 82-year-old female with a history of chronic left hip pain secondary to osteoarthritis. Underwent arthroplasty by MELODIE Mcneil who requested consultation to evaluate and manage multiple medical conditions. Left hip osteoarthritis status post arthroplasty. Stable continue postoperative care with physical therapy, wound care, pain management with Lortab, IV Toradol and morphine sulfate, DVT prophylaxis with aspirin. Anemia secondary to acute blood loss but hemodynamically stable GERD controlled on ranitidine Arthritis managed by glucosamine. Elie Samaniego MD May 11, 2017 10:11
[2017-05-11 12:00] VITALS: BP 140/63; PULSE 80; RESP 17; TEMP 98.4; O2SAT 97
[2017-05-11 13:20] LABS: HEMATOCRIT 32.1 % (35.0-46.0); HEMOGLOBIN 10.7 GM/DL (11.6-15.3)
[2017-05-11] MEDS ORDERED: DOCUSATE SODIUM 100 MG CAP PO SCH (21:00)
== END 2017-05-11 14:45 | disposition home health service (06) | DRG 470 ==
LOC: HSDI 05:10 → N06A 12:24 → N06B 05-11 13:01
PROVIDERS: ADMIT Orthopaedic Surgery; ATTEND Orthopaedic Surgery
PROC: 0SRB02Z Replacement of Left Hip Joint with Metal on Polyethylene Synthetic Substitute, Open Approach (ICD-10-PCS; principal; 2017-05-10 06:47)
DX: M16.12 Unilateral primary osteoarthritis, left hip (principal); D62 Acute posthemorrhagic anemia; M85.68 Other cyst of bone, other site; M25.752 Osteophyte, left hip; G25.81 Restless legs syndrome; K21.9 Gastro-esophageal reflux disease without esophagitis; Z88.1 Allergy status to other antibiotic agents
CPT/HCPCS: 73502; 85014; 85018; 86850; 86900; 86901; 94150; C1776; C9290; J0131; J0690; J1100; J1580; J1885; J2250; J2370; J2405; J2765; J3010; J7120; L1830